=== PATIENT | female | born 1960 ===

== ENCOUNTER 2016-05-31 15:21 | Emergency (ER) | payer MEDICARE, MEDICAID ==
[2016-05-31 16:19] VITALS: BP 133/72; PULSE 74; RESP 18; TEMP 97.8; O2SAT 100
[2016-05-31] MEDS ORDERED: Oxycodone/Acetaminophen 5/325 mg Tab PO STA (18:19)
--- NOTE | 2016-05-31 18:20 | ED PDOC ---
HPI: Back Time Seen by Provider: 05/31/16 16:39 Chief Complaint (Nursing): Back Pain Chief Complaint (Provider): Back Pain History Per: Patient Additional Complaint(s): patient having lower back pain. No trauma, no known hx. Patient took tylenol 10am and has been taking naproxen and motrin yesterday w/out relief. denies urinary symptoms. no bowel or bladder dysfunction. Able to ambulate with steady gait Past Medical History Reviewed: Nursing Documentation, Vital Signs Vital Signs: Last Vital Signs Temp 97.8 F 05/31/16 16:17 Pulse 74 05/31/16 16:17 Resp 18 05/31/16 16:17 BP 133/72 05/31/16 16:17 Pulse Ox 100 05/31/16 16:17 - Medical History PMH: No Chronic Diseases - Surgical History Surgical History: No Surg Hx - Family History Family History: States: No Known Family Hx - Living Arrangements Living Arrangements: With Family - Social History Current smoker - smoking cessation education provided: No Alcohol: None Drugs: Denies - Home Medications Home Medications: Ambulatory Orders Medication Instructions Recorded Cyclobenzaprine [Cyclobenzaprine 10 mg PO TID #20 tab 05/31/16 HCl] Ibuprofen [Motrin Tab] 800 mg PO Q8 #20 tab 05/31/16 - Allergies Allergies/Adverse Reactions: Allergies Allergy/AdvReac Type Severity Reaction Status Date / Time No Known Allergies Allergy Verified 05/31/16 18:19 Review of Systems ROS Statement: Except As Marked, All Systems Reviewed And Found Negative Musculoskeletal: Positive for: Back Pain Physical Exam - Reviewed Nursing Documentation Reviewed: Yes Vital Signs Reviewed: Yes - Physical Exam Appears: Positive for: Well, Non-toxic, No Acute Distress Head Exam: Positive for: ATRAUMATIC, NORMAL INSPECTION, NORMOCEPHALIC Skin: Positive for: Normal Color, Warm, DRY Eye Exam: Positive for: EOMI, Normal appearance, PERRL ENT: Positive for: Normal ENT Inspection Neck: Positive for: Normal, Painless ROM Cardiovascular/Chest: Positive for: Regular Rate, Rhythm Respiratory: Positive for: CNT, Normal Breath Sounds Gastrointestinal/Abdominal: Positive for: Normal Exam, Bowel Sounds, Soft Back: Positive for: Normal Inspection, Muscle Spasm (left lower back). Negative for: L CVA Tenderness, R CVA Tenderness Extremity: Positive for: Normal ROM Neurologic/Psych: Positive for: Alert, Oriented - ECG O2 Sat by Pulse Oximetry: 100 Medical Decision Making Medical Decision Making: Medicated with Percocet, Motrin and Flexeril PO. After medications, Pt asking to go home. Reports pain improved. Stable for discharge. Ambulatory with steady gait. Disposition - Clinical Impression Clinical Impression: Back pain - Patient ED Disposition Is Patient to be Admitted: No - Disposition Disposition: Routine/Home Disposition Time: 19:03 Condition: GOOD Prescriptions: Cyclobenzaprine [Cyclobenzaprine HCl] 10 mg PO TID #20 tab Ibuprofen [Motrin Tab] 800 mg PO Q8 #20 tab Instructions: Back Pain (ED)
== END 2016-05-31 19:05 | disposition home or self-care (01) ==
LOC: H.ER 15:21
DX: M54.5 Low back pain (principal)